=== PATIENT | female | born 1955 | race American Indian/Alaskan Native ===

== ENCOUNTER 2022-05-15 22:41 | Emergency (ER) | payer MEDICARE, BC ==
[2022-05-15] MEDS ORDERED: OLANZapine 10 MG Vial IM STA (23:15)
[2022-05-16 02:12] LABS: CORONAVIRUS COVID-19 NAA NEGATIVE (NEGATIVE)
[2022-05-16] MEDS ORDERED: OLANZapine 10 MG Vial IM ONE (13:48)
[2022-05-16] MEDS ORDERED: OLANZapine 10 MG Vial ONE (13:48)
[2022-05-16] MEDS ORDERED: LORazepam 2 MG/ML SDV IM ONE (14:55)
[2022-05-16] MEDS ORDERED: LORazepam 2 MG/ML SDV ONE (14:56)
[2022-05-17 04:01] VITALS: BP 126/61; PULSE 70
== END 2022-05-17 05:30 | disposition left against medical advice (07) ==
LOC: JD.ED 22:41
DX: F32.3 Major depressive disorder, single episode, severe with psychotic features (principal); R73.9 Hyperglycemia, unspecified; I10 Essential (primary) hypertension; E66.9 Obesity, unspecified; Z68.32 Body mass index [BMI] 32.0-32.9, adult; Z20.822 Contact with and (suspected) exposure to COVID-19
CPT/HCPCS: 36415; 80053; 80143; 80179; 80306; 80307; 81003; 82947; 84443; 85025; 93005; 93010; 96372; 99284; 99285

== ENCOUNTER 2022-05-19 09:42 | Emergency (ER) | payer BC, MEDICARE ==
[2022-05-19 10:05] VITALS: BP 157/71; PULSE 91
[2022-05-19] MEDS ORDERED: Acetaminophen 325 MG Tab PO ONE (13:18)
[2022-05-19] MEDS ORDERED: Haloperidol 1 MG Tab PO ONE (13:47)
== END 2022-05-19 16:30 ==
LOC: JD.ED 09:42
DX: F29 Unspecified psychosis not due to a substance or known physiological condition (principal); E78.00 Pure hypercholesterolemia, unspecified; I10 Essential (primary) hypertension; E66.9 Obesity, unspecified; Z68.30 Body mass index [BMI] 30.0-30.9, adult; Z79.84 Long term (current) use of oral hypoglycemic drugs; Z79.899 Other long term (current) drug therapy
CPT/HCPCS: 36415; 70450; 80053; 80143; 80179; 80306; 80307; 81003; 84443; 85025; 85610; 93005; 99285; A9270; 93010

== ENCOUNTER 2022-07-20 13:57 | Emergency (ER) | payer BC, MEDICARE ==
[2022-07-20] MEDS ORDERED: FLUoxetine 10 MG Cap PO ONE (15:01)
[2022-07-20] MEDS ORDERED: QUEtiapine 100 MG Tab PO ONE (15:01)
[2022-07-20 15:51] VITALS: BP 165/63; PULSE 81
== END 2022-07-20 15:33 | disposition home or self-care (01) ==
LOC: JD.ED 13:57
DX: F32.A Depression, unspecified (principal); E78.00 Pure hypercholesterolemia, unspecified; I10 Essential (primary) hypertension; E11.9 Type 2 diabetes mellitus without complications; E66.9 Obesity, unspecified; Z68.30 Body mass index [BMI] 30.0-30.9, adult; Z79.84 Long term (current) use of oral hypoglycemic drugs; Z79.899 Other long term (current) drug therapy
CPT/HCPCS: 99283; A9270

== ENCOUNTER 2022-07-23 15:09 | Emergency (ER) | payer BC, MEDICARE ==
[2022-07-23 16:52] LABS: BASOPHILS ABSOLUTE AUTO 0.03 K/mm3 (0.01-0.08); BASOPHILS PERCENT AUTO 0.4 % (0.1-1.2); EOSINOPHILS ABSOLUTE AUTO 0.19 K/mm3 (0.04-0.36); EOSINOPHILS PERCENT AUTO 2.5 (0.7-5.8); HEMATOCRIT 45.7 % (34.1-44.9); HEMOGLOBIN 14.8 gm/dl (11.2-15.7); IMMATURE GRAN ABSOLUTE AUTO 0.01 K/mm3 (0.00-0.10); IMMATURE GRAN PERCENT AUTO 0.1 % (<=1.0); LYMPHOCYTES ABSOLUTE AUTO 1.08 K/mm3 (1.18-3.74); LYMPHOCYTES PERCENT AUTO 14.4 % (19.3-51.7); MEAN CORPUSCULAR HEMOGLOBIN 30.1 pg (25.6-32.2); MEAN CORPUSCULAR HGB CONC 32.4 g/dl (32.2-35.5); MEAN CORPUSCULAR VOLUME 92.9 fl (79.4-94.8); MEAN PLATELET VOLUME 9.1 fl (9.4-12.3); MONOCYTES ABSOLUTE AUTO 0.45 K/mm3 (0.24-0.36); NEUTROPHILS ABSOLUTE AUTO 5.72 K/mm3 (1.56-6.13); NEUTROPHILS PERCENT AUTO 76.6 % (34.0-71.1); PLATELET COUNT,PLT 209 K/mm3 (182-369); RED BLOOD CELL COUNT 4.92 M/mm3 (3.98-5.22); WHITE BLOOD CELL COUNT,WBC 7.48 K/mm3 (3.98-10.04)
[2022-07-23 17:21] LABS: A/G RATIO 0.7 (1-2); ALBUMIN 3.2 g/dl (3.4-5.0); ANION GAP 10.1 (5-15); BILIRUBIN TOTAL 0.6 mg/dL (0.2-1.0); BUN/CREATININE RATIO 13.8 (14-18); CREATININE 0.8 mg/dL (0.55-1.02); EST CRCL DRUG DOSING (CG) 63.01 mL/min; POTASSIUM,K 4.1 mEq/L (3.5-5.1); PROTEIN TOTAL,TP 7.8 g/dl (6.4-8.2); TSH 1.02 uIU/mL (0.358-3.74)
[2022-07-23 18:16] LABS: APPEARANCE,URINE CLEAR (Clear); BILIRUBIN,URINE NEGATIVE (Negative); COLOR,URINE YELLOW (Yellow); GLUCOSE,URINE NEGATIVE (Negative); KETONES,URINE NEGATIVE (Negative); LEUKOCYTE ESTERASE,URINE TRACE (Negative); NITRITE,URINE NEGATIVE (Negative); OCCULT BLOOD,URINE NEGATIVE (Negative); PH,URINE 6.5 (5.0-8.0); PROTEIN,URINE NEGATIVE (Negative)
[2022-07-23 18:23] LABS: BACTERIA,URINE MANY /hpf (FEW); MUCUS,URINE MODERATE /hpf (FEW); RBC,URINE 0-5 /hpf (0-5); SQUAMOUS EPITHELIAL CELLS,UR 0-5 /hpf (0-5)
[2022-07-23 18:25] LABS: BARBITURATE SCREEN,URINE NEGATIVE (CUTOFF=200); BENZODIAZEPINES SCREEN,URINE NEGATIVE (CUTOFF=150); BUPRENORPHINE SCREEN,URINE NEGATIVE (CUTOFF=10); METHADONE SCREEN, URINE NEGATIVE (CUTOFF=200); METHAMPHETAMINES SCREEN, URINE NEGATIVE (CUTOFF=500); OXYCODONE SCREEN,URINE NEGATIVE (CUT0FF=100); PROPOXYPHENE SCREEN,URINE NEGATIVE (CUTOFF=300); THC SCREEN,URINE 20 NG/ML NEGATIVE (CUTOFF=50)
[2022-07-23 18:27] LABS: AMPHETAMINES SCREEN, URINE NEGATIVE (CUTOFF=500)
[2022-07-23] MEDS ORDERED: FLUoxetine 10 MG Cap PO ONE (20:30)
[2022-07-23] MEDS ORDERED: QUEtiapine 100 MG Tab PO ONE (20:30)
[2022-07-23] MEDS ORDERED: Sodium Chloride 0.9% 1,000 ML IV ONE (21:14)
[2022-07-23] MEDS ORDERED: cefTRIAXone 1 GM in Sodium Chloride 0.9% 100 ML IV SCH (22:00)
[2022-07-24 11:14] LABS: CORONAVIRUS COVID-19 NAA NEGATIVE (NEGATIVE); INFLUENZA A NAA NEGATIVE (NEGATIVE); RESPIRATORY SYNCYTIAL VIR NAA NEGATIVE (NEGATIVE)
[2022-07-24] MEDS ORDERED: LORazepam 2 MG/ML SDV IVPUSH ONE (13:11)
[2022-07-24 20:21] VITALS: BP 138/77; PULSE 87
== END 2022-07-24 19:55 | disposition home or self-care (01) ==
LOC: JD.ED 15:09
DX: F20.2 Catatonic schizophrenia (principal); E78.00 Pure hypercholesterolemia, unspecified; I10 Essential (primary) hypertension; K21.9 Gastro-esophageal reflux disease without esophagitis; E11.9 Type 2 diabetes mellitus without complications; E66.9 Obesity, unspecified; Z79.84 Long term (current) use of oral hypoglycemic drugs; Z79.899 Other long term (current) drug therapy; Z20.822 Contact with and (suspected) exposure to COVID-19; Z68.31 Body mass index [BMI] 31.0-31.9, adult
CPT/HCPCS: 0241U; 36415; 70450; 71045; 80053; 80143; 80179; 80306; 80307; 81001; 82140; 82947; 84443; 85025; 87040; 87086; 93005; 96361; 96365; 96375; 99285; J0696; J2060; J3490; J7030; 93010; 99284

== ENCOUNTER 2022-07-26 09:48 | Emergency (ER) | payer BC, MEDICARE ==
[2022-07-26] MEDS ORDERED: LORazepam 2 MG/ML SDV IVPUSH ONE (11:16)
[2022-07-26 11:21] LABS: BASOPHILS ABSOLUTE AUTO 0.02 K/mm3 (0.01-0.08); BASOPHILS PERCENT AUTO 0.2 % (0.1-1.2); EOSINOPHILS ABSOLUTE AUTO 0.07 K/mm3 (0.04-0.36); EOSINOPHILS PERCENT AUTO 0.9 (0.7-5.8); HEMATOCRIT 47.4 % (34.1-44.9); HEMOGLOBIN 15.5 gm/dl (11.2-15.7); IMMATURE GRAN ABSOLUTE AUTO 0.02 K/mm3 (0.00-0.10); IMMATURE GRAN PERCENT AUTO 0.2 % (<=1.0); LYMPHOCYTES ABSOLUTE AUTO 0.83 K/mm3 (1.18-3.74); LYMPHOCYTES PERCENT AUTO 10.2 % (19.3-51.7); MEAN CORPUSCULAR HEMOGLOBIN 30.1 pg (25.6-32.2); MEAN CORPUSCULAR HGB CONC 32.7 g/dl (32.2-35.5); MEAN PLATELET VOLUME 9.2 fl (9.4-12.3); MONOCYTES ABSOLUTE AUTO 0.39 K/mm3 (0.24-0.36); MONOCYTES PERCENT AUTO 4.8 % (4.7-12.5); NEUTROPHILS ABSOLUTE AUTO 6.78 K/mm3 (1.56-6.13); NEUTROPHILS PERCENT AUTO 83.7 % (34.0-71.1); PLATELET COUNT,PLT 198 K/mm3 (182-369); RED BLOOD CELL COUNT 5.15 M/mm3 (3.98-5.22); WHITE BLOOD CELL COUNT,WBC 8.11 K/mm3 (3.98-10.04)
[2022-07-26 11:56] LABS: A/G RATIO 0.7 (1-2); ACETAMINOPHEN 0 ug/mL (10-30); ALANINE AMINOTRANSFERASE,ALT 21 U/L (14-59); ALBUMIN 3.3 g/dl (3.4-5.0); ALKALINE PHOSPHATASE 180 U/L (46-116); ASPARTATE AMNIOTRANSFERASE,AST 29 U/L (15-37); BILIRUBIN TOTAL 0.7 mg/dL (0.2-1.0); BLOOD UREA NITROGEN,BUN 17 mg/dL (7-18); BUN/CREATININE RATIO 21.3 (14-18); CALCIUM 9.2 mg/dL (8.5-10.1); CARBON DIOXIDE,CO2 26 mEq/L (21-32); CHLORIDE,CL 105 mEq/L (98-107); CREATININE 0.8 mg/dL (0.55-1.02); ESTIMATED GFR 80 mL/min (>60); GLUCOSE RANDOM 101 mg/dL (70-99); PROTEIN TOTAL,TP 8.2 g/dl (6.4-8.2); SODIUM,NA 140 mEq/L (136-145); TSH 1.436 uIU/mL (0.358-3.74)
[2022-07-26 13:25] LABS: BARBITURATE SCREEN,URINE NEGATIVE (CUTOFF=200); BENZODIAZEPINES SCREEN,URINE PRESUMPTIVE POSITIVE (CUTOFF=150); BUPRENORPHINE SCREEN,URINE NEGATIVE (CUTOFF=10); METHADONE SCREEN, URINE NEGATIVE (CUTOFF=200); METHAMPHETAMINES SCREEN, URINE NEGATIVE (CUTOFF=500); OXYCODONE SCREEN,URINE NEGATIVE (CUT0FF=100); PROPOXYPHENE SCREEN,URINE NEGATIVE (CUTOFF=300); THC SCREEN,URINE 20 NG/ML NEGATIVE (CUTOFF=50)
[2022-07-26 13:26] LABS: AMPHETAMINES SCREEN, URINE NEGATIVE (CUTOFF=500)
[2022-07-26] MEDS ORDERED: LORazepam 2 MG/ML SDV IM ONE (22:04)
[2022-07-27 00:03] VITALS: BP 137/69; PULSE 72
== END 2022-07-26 23:01 ==
LOC: JD.ED 09:48
DX: F20.2 Catatonic schizophrenia (principal); I10 Essential (primary) hypertension; E11.9 Type 2 diabetes mellitus without complications; E66.9 Obesity, unspecified; Z79.84 Long term (current) use of oral hypoglycemic drugs; Z20.822 Contact with and (suspected) exposure to COVID-19
CPT/HCPCS: 36415; 80053; 80143; 80179; 80306; 80307; 84443; 85025; 87635; 93005; 96372; 96374; 99285; J2060; 93010; U0002

== ENCOUNTER 2024-08-13 10:15 | Emergency (ER) | payer MEDICARE, BC ==
[2024-08-13 11:01] LABS: BASOPHILS ABSOLUTE AUTO 0.0 K/mm3 (0.0-0.2); BASOPHILS PERCENT AUTO 0.5 % (0.0-1.0); EOSINOPHILS ABSOLUTE AUTO 0.1 K/mm3 (0.0-0.4); EOSINOPHILS PERCENT AUTO 2.1 % (0.0-6.0); IMMATURE GRAN ABSOLUTE AUTO 0.01 K/mm3 (0.00-0.05); IMMATURE GRAN PERCENT AUTO 0.2 % (0.0-0.4); LYMPHOCYTES ABSOLUTE AUTO 0.7 K/mm3 (1.0-4.8); LYMPHOCYTES PERCENT AUTO 11.8 % (24.0-44.0); MEAN PLATELET VOLUME 9.1 fl (9.4-12.3); MONOCYTES ABSOLUTE AUTO 0.3 K/mm3 (0.0-0.8); MONOCYTES PERCENT AUTO 4.8 % (0.0-8.0); NEUTROPHILS ABSOLUTE AUTO 5.1 K/mm3 (1.8-7.7); NEUTROPHILS PERCENT AUTO 80.6 % (41.0-71.0); NRBC ABSOLUTE 0.00 (0.00-0.02); NRBC PERCENT 0.0 % (0.0-0.2); PLATELET COUNT,PLT 229 K/mm3 (150-400); RED BLOOD CELL COUNT 5.07 M/mm3 (4.10-5.30); WHITE BLOOD CELL COUNT,WBC 6.27 K/mm3 (3.9-11.3)
[2024-08-13 11:22] LABS: LACTIC ACID 0.8 mmol/L (0.4-2.0)
[2024-08-13 11:30] LABS: A/G RATIO 0.9 (1-2); ALANINE AMINOTRANSFERASE,ALT 23.0 U/L (14-59); ASPARTATE AMNIOTRANSFERASE,AST 21.0 U/L (15-37); BILIRUBIN TOTAL 0.6 mg/dL (0.2-1.0); BLOOD UREA NITROGEN,BUN 13.0 mg/dL (7-18); CARBON DIOXIDE,CO2 28.0 mEq/L (21-32); CHLORIDE,CL 103.0 mEq/L (98-107); CREATININE 0.9 mg/dL (0.55-1.02); EST CRCL DRUG DOSING (CG) 60.79 mL/min; ESTIMATED GFR 69.0 mL/min (>60); GLUCOSE RANDOM 101.0 mg/dL (70-99); POTASSIUM,K 4.1 mEq/L (3.5-5.1); PROTEIN TOTAL,TP 7.6 g/dl (6.4-8.2); SODIUM,NA 137.0 mEq/L (136-145); TROPONIN I HIGH SENSITIVITY 7.0 pg/mL (<=51)
[2024-08-13 12:45] LABS: APPEARANCE,URINE CLEAR (Clear); GLUCOSE,URINE NEGATIVE (Negative); OCCULT BLOOD,URINE NEGATIVE (Negative)
[2024-08-13] MEDS: Iopamidol 612 MG/ML 100 ML Bottle IVPUSH ONE (13:15)
[2024-08-13] MEDS: Sodium Chloride 0.9% 10 ML Syringe FLUSH PRN (13:15)
[2024-08-13 15:07] VITALS: BP 119/63; PULSE 55
== END 2024-08-13 14:55 | disposition home or self-care (01) ==
LOC: JD.ED 10:15
DX: R10.13 Epigastric pain (principal); I10 Essential (primary) hypertension; E78.00 Pure hypercholesterolemia, unspecified; E11.9 Type 2 diabetes mellitus without complications; E66.9 Obesity, unspecified; Z79.899 Other long term (current) drug therapy; Z79.84 Long term (current) use of oral hypoglycemic drugs; Z90.49 Acquired absence of other specified parts of digestive tract; Z90.710 Acquired absence of both cervix and uterus
CPT/HCPCS: 36415; 74177; 76705; 80053; 81003; 82977; 83605; 83690; 83735; 84484; 85025; 96360; 96361; 99284; J7030; Q9967; 99283